=== PATIENT | female | born 1950 | race Caucasian/White ===

== ENCOUNTER 2016-05-07 10:20 | Emergency (ER) | payer OTHER ==
[2016-05-07] MEDS ORDERED: ONDANSETRON 4 MG VIAL ONE (11:12)
[2016-05-07] MEDS ORDERED: CEFTRIAXONE 1 GM VIAL ONE (12:10)
[2016-05-07] MEDS ORDERED: SODIUM CHLORIDE 0.9% 100 ML IV ONE (12:11)
[2016-05-07] MEDS ORDERED: MORPHINE 4 MG/ML SYR ONE (12:11)
[2016-05-07] MEDS ORDERED: TRAMADOL 50 MG TAB ONE (14:26)
== END 2016-05-07 14:56 | disposition home or self-care (01) ==
LOC: ER 10:20
DX: N30.90 Cystitis, unspecified without hematuria (principal); R10.9 Unspecified abdominal pain; Z88.1 Allergy status to other antibiotic agents
CPT/HCPCS: 36415; 74177; 80053; 81001; 83690; 85025; 87088; 96365; 96375; 99285; J0696; J2270; J2405